=== PATIENT | female | born 2005 | race Caucasian/White ===

== ENCOUNTER 2024-03-05 06:37 | Outpatient (REF) | payer BC, SELFPAY ==
--- NOTE | ~2024-03-05 | US_ITS ---
EXAMINATION: US PELVIS CLINICAL INFORMATION: Lower abdominal pain. Unknown LMP. COMPARISON: None available. TECHNIQUE: Ultrasound of the pelvis is performed using both transabdominal and transvaginal transducers along with Doppler. Transvaginal imaging is performed due to inadequate visualization transabdominally. FINDINGS: Anteverted uterus with normal morphology measuring 7.2 x 3 x 4.9 cm. No uterine mass. Homogeneous endometrium measuring 0.3 cm in thickness. No focal endometrial abnormality. The ovaries are symmetric in size and normal in morphology. The right ovary measures 2.3 x 1.4 x 1.6 cm, 2.7 mL and the left ovary measures 2.2 x 1.1 x 2.1 cm, 2.6 mL. No adnexal mass. No free fluid. US/US pelvic and transvaginal IMPRESSION: No acute sonographic abnormalities to explain the patient's symptoms. Electronically signed by: Dionne Gimenez MD 03/05/2024 07:06 PM EDT
== END 2024-03-05 06:38 | disposition home or self-care (01) ==
LOC: HO.UMASIMG 06:37
PROVIDERS: Visit Provider Family Medicine
DX: R10.30 Lower abdominal pain, unspecified (principal)
CPT/HCPCS: 76830; 76856